=== PATIENT | male | born 1965 | race Caucasian/White ===

== ENCOUNTER 2020-09-02 15:46 | Emergency (ER) | payer OTHER ==
[~2020-09-02] VITALS: Ht 172.7 cm; Wt 83.1 kg
[2020-09-02 16:06] VITALS: BP 170/100
--- NOTE | 2020-09-02 16:27 | NUR ---
PT AMBULATED FROM LOBBY TO ROOM AT THIS TIME.
[2020-09-02 16:47] LABS: BASOPHILS % (AUTO) 1 % (0-1); EOSINOPHILS % (AUTO) 2 % (1-7); LYMPHOCYTES % (AUTO) 21 % (22-44); MEAN CORPUSCULAR HEMOGLOBIN 28.1 pg (27.5-34.5); MEAN CORPUSCULAR HGB CONC 32.9 g/dL (33.2-36.2); MEAN PLATELET VOLUME 8.1 fL (7.4-10.4); MONOCYTES % (AUTO) 12 % (2-9); NEUTROPHILS % (AUTO) 65 % (42-75); PLATELET COUNT 267 x10^3/uL (130-400); RED BLOOD COUNT 4.87 x10^6/uL (4.38-5.82); RED CELL DISTRIBUTION WIDTH 15.5 % (9.4-14.8)
[2020-09-02 16:51] LABS: MD NO
[2020-09-02 16:58] LABS: ALANINE AMINOTRANSFERASE 33 U/L (12-78); ALBUMIN 4.3 g/dL (3.4-5.0); ALKALINE PHOSPHATASE 73 U/L (45-117); ANION GAP 7 mmol/L (5-15); BILIRUBIN,TOTAL 0.5 mg/dL (0.2-1.0); CALCIUM 9.6 mg/dL (8.5-10.1); CHLORIDE 105 mmol/L (98-107); CREATININE 1.25 mg/dL (0.7-1.3)
[2020-09-02] MEDS ORDERED: OXYcodone/APAP 5/325MG TABLET PO ONE (17:00)
[2020-09-02] MEDS ORDERED: DIAZEPAM 5 MG TABLET PO ONE (17:00)
[2020-09-02] MEDS ORDERED: ONDANSETRON ODT 4 MG PO ONE (17:00)
[2020-09-02] MEDS ORDERED: KETOROLAC 30 MG/1 ML IM ONE (17:00)
[2020-09-02] MEDS ORDERED: ONDANSETRON ODT 4 MG ONE (17:03)
[2020-09-02] MEDS ORDERED: KETOROLAC 60 MG/2 ML ONE (17:03)
[2020-09-02] MEDS ORDERED: DIAZEPAM 5 MG TABLET ONE (17:03)
[2020-09-02] MEDS ORDERED: OXYcodone/APAP 5/325MG TABLET ONE (17:04)
--- NOTE | 2020-09-02 18:30 | NUR ---
Patient given discharge instructions and they have confirmed that they understand the instructions. Patient ambulatory with steady gait.
== END 2020-09-02 18:41 | disposition home or self-care (01) ==
LOC: ED 18:18
DX: S39.012A Strain of muscle, fascia and tendon of lower back, initial encounter (principal); S33.5XXA Sprain of ligaments of lumbar spine, initial encounter; I10 Essential (primary) hypertension; E11.9 Type 2 diabetes mellitus without complications; X58.XXXA Exposure to other specified factors, initial encounter; Y93.89 Activity, other specified; Y92.89 Other specified places as the place of occurrence of the external cause; Y99.8 Other external cause status
CPT/HCPCS: 36415; 80053; 85025; 96372; 99284; J1885; Q0162